=== PATIENT | male | born 1940 | race Caucasian/White ===

== ENCOUNTER 2022-11-08 08:06 | Observation (INO) | payer OTHER ==
[2022-11-08 09:10] LABS: BASO % 0.7 % (0-2.0); EOS % 7.9 % (0-4.5); HEMATOCRIT 40.4 % (35.4-49); HEMOGLOBIN 13.7 GM/dL (11.7-16.9); LYMPH % 25.5 % (8-40); MCH 30.9 pg (25.7-33.7); MCHC 33.9 g/dl (32.0-35.9); MEAN CELL VOLUME 91.1 fl (80-96); MONO % 11.7 % (3.8-10.2); NEUT % 54.2 % (42.8-82.8); PLATELET COUNT 242 10^3/uL (134-434); RBC 4.43 M/mm3 (4.00-5.60); WHITE BLOOD COUNT 3.9 K/mm3 (4.0-10.0)
[2022-11-08 09:19] LABS: INR 1.03 (0.83-1.09)
[2022-11-08 09:22] LABS: ACTIVATED PTT 33.1 SECONDS (25.2-36.5)
[2022-11-08 09:29] LABS: ALBUMIN 3.8 g/dl (3.4-5.0); CALCIUM 9.6 mg/dL (8.5-10.1)
[2022-11-08 09:31] LABS: BLOOD UREA NITROGEN 27.4 mg/dL (7-18)
[2022-11-08 09:33] LABS: CREATININE 1.5 mg/dL (0.55-1.3)
[2022-11-08 09:34] LABS: TOT PROT 7.5 g/dl (6.4-8.2)
[2022-11-08 09:35] LABS: BILIRUBIN,TOTAL 0.9 mg/dL (0.2-1)
[2022-11-08] MEDS: SODIUM CHLORIDE 1,000 ML IV SCH (10:00)
[2022-11-08] MEDS ORDERED: SODIUM ZIRCONIUM CYCLOSILICATE (LOKELMA) 5 GM PACKET ONE (10:04)
[2022-11-08] MEDS: SODIUM ZIRCONIUM CYCLOSILICATE (LOKELMA) 5 GM PACKET PO SCH (10:35)
[2022-11-08 11:32] VITALS: RESP 18
[2022-11-08] MEDS: INSULIN SLIDING SCALE (NOVOLOG) 1 VIAL SQ SCH ×2 (11:46→17:28)
[2022-11-08 12:00] LABS: URINE APPEARANCE CLEAR; URINE BILIRUBIN NEGATIVE (NEGATIVE); URINE COLOR YELLOW; URINE GLUCOSE (UA) 3+ (NEGATIVE); URINE KETONE NEGATIVE (NEGATIVE); URINE LEUK ESTERASE NEGATIVE (NEGATIVE); URINE NITRITE NEGATIVE (NEGATIVE); URINE PROTEIN NEGATIVE (NEGATIVE); URINE UROBILINOGEN 0.2 mg/dL (0.2-1.0)
[2022-11-08 12:02] VITALS: BMI 23.6
[2022-11-08] MEDS ORDERED: ATORVASTATIN CA 40 MG TABLET (FP) PO SCH (22:00)
[2022-11-08] MEDS: HEPARIN NA (PORCINE) 5,000 UNITS/ML 1ML VIAL SQ SCH (22:23)
[2022-11-08] MEDS: CARVEDILOL 25 MG TABLET (FP) PO SCH (22:23)
[2022-11-08] MEDS: TICAGRELOR 90 MG TABLET PO SCH (22:24)
[2022-11-09] MEDS: INSULIN SLIDING SCALE (NOVOLOG) 1 VIAL SQ SCH ×3 (06:32→16:58)
[2022-11-09 07:39] LABS: BASO % 0.7 % (0-2.0); HEMATOCRIT 37.5 % (35.4-49); HEMOGLOBIN 12.8 GM/dL (11.7-16.9); LYMPH % 28.3 % (8-40); MCHC 34.1 g/dl (32.0-35.9); MEAN CELL VOLUME 90.7 fl (80-96); MEAN PLT VOLUME 9.7 fl (7.5-11.1); MONO % 11.8 % (3.8-10.2); NEUT % 52.2 % (42.8-82.8); PLATELET COUNT 218 10^3/uL (134-434); RBC 4.13 M/mm3 (4.00-5.60); RDW 12.8 % (11.9-15.9); WHITE BLOOD COUNT 4.1 K/mm3 (4.0-10.0)
[2022-11-09] MEDS: SODIUM CHLORIDE 1,000 ML IV SCH (08:23)
[2022-11-09 08:47] LABS: CALCIUM 9.2 mg/dL (8.5-10.1)
[2022-11-09 08:51] LABS: CREATININE 1.3 mg/dL (0.55-1.3)
[2022-11-09] MEDS ORDERED: ASPIRIN COATED 81 MG TABLET.EC PO SCH (10:00)
[2022-11-09] MEDS: HEPARIN NA (PORCINE) 5,000 UNITS/ML 1ML VIAL SQ SCH (10:21)
[2022-11-09] MEDS: CARVEDILOL 25 MG TABLET (FP) PO SCH (10:22)
[2022-11-09] MEDS: TICAGRELOR 90 MG TABLET PO SCH (10:22)
[2022-11-09] MEDS: SODIUM ZIRCONIUM CYCLOSILICATE (LOKELMA) 5 GM PACKET PO SCH (11:39)
[2022-11-09 14:58] VITALS: BP 122/66; PULSE 72; TEMP 98
[2022-11-09 15:32] LABS: BASO % 1.2 % (0-2.0); EOS % 5.7 % (0-4.5); HEMOGLOBIN 13.1 GM/dL (11.7-16.9); LYMPH % 21.7 % (8-40); MCH 31.5 pg (25.7-33.7); MCHC 34.4 g/dl (32.0-35.9); MEAN CELL VOLUME 91.5 fl (80-96); MEAN PLT VOLUME 9.2 fl (7.5-11.1); MONO % 8.9 % (3.8-10.2); NEUT % 62.5 % (42.8-82.8); PLATELET COUNT 245 10^3/uL (134-434); RBC 4.15 M/mm3 (4.00-5.60); WHITE BLOOD COUNT 4.7 K/mm3 (4.0-10.0)
[2022-11-09 15:52] LABS: CALCIUM 8.7 mg/dL (8.5-10.1)
[2022-11-09 15:53] LABS: ALBUMIN 3.4 g/dl (3.4-5.0); BLOOD UREA NITROGEN 24.4 mg/dL (7-18)
[2022-11-09 15:55] LABS: PHOSPHOROUS 3.6 mg/dL (2.5-4.9)
[2022-11-09 15:56] LABS: CREATININE 1.5 mg/dL (0.55-1.3)
[2022-11-09 15:57] LABS: BILIRUBIN,TOTAL 0.4 mg/dL (0.2-1); TOT PROT 6.9 g/dl (6.4-8.2)
== END 2022-11-09 17:35 | disposition short-term general hospital (02) ==
LOC: JER 08:06 → INTOOBSV 08:30 → JERBED 08:30 → UNDOADMOB 08:30 → JERBED 10:47 → J4W 11:15
PROVIDERS: ADMIT Internal Medicine; ATTEND Internal Medicine
PROC: 3E023GC Introduction of Other Therapeutic Substance into Muscle, Percutaneous Approach (ICD-10-PCS; principal; 2022-11-08)
DX: G45.9 Transient cerebral ischemic attack, unspecified (principal); E11.9 Type 2 diabetes mellitus without complications; I10 Essential (primary) hypertension; I25.10 Atherosclerotic heart disease of native coronary artery without angina pectoris; I24.9 Acute ischemic heart disease, unspecified; Z95.5 Presence of coronary angioplasty implant and graft; I73.9 Peripheral vascular disease, unspecified
CPT/HCPCS: 0241U-QW; 36415; 70450-TC; 70496-TC; 70498-TC; 80048; 80053; 80061; 81003; 82550; 82962; 83036; 83735; 84100; 84484; 85025; 85610; 85730; 86850; 86900; 86901; 93005; 93010; 93880-TC; 96372; 97116-GP; 99291; G0378; J1644